=== PATIENT | male | born 1950 | race Caucasian/White ===

== ENCOUNTER 2016-07-24 04:51 | Day surgery (SDC) | payer OTHER ==
[2016-07-21 13:38] LABS: BASOPHILS 0.4 %; BASOPHILS ABSOLUTE 0.03 10/3/uL (0.0-0.16); EOSINOPHILS 5.3 %; EOSINOPHILS ABSOLUTE 0.38 10/3/uL (0.0-0.53); HEMATOCRIT 43.8 % (40.0-51.0); HEMOGLOBIN 15.1 g/dL (13.6-17.8); IMMATURE GRANULOCYTES 0.1 %; IMMATURE GRANULOCYTES ABSOLUTE 0.01 10/3/uL (0.0-0.11); LYMPHOCYTES 40.5 %; LYMPHOCYTES ABSOLUTE 2.92 10/3/uL (0.67-4.30); MANUAL DIFF NO %; MEAN CORPUS HGB CONC 34.5 g/dL (32.0-36.0); MEAN CORPUSCULAR VOLUME 86.9 fL (80-100); MEAN PLATELET VOLUME 9.7 fL (9.2-13.0); MONOCYTES 11.7 %; MONOCYTES ABSOLUTE 0.84 10/3/uL (0.21-1.20); NEUTROPHILS ABSOLUTE 3.03 10/3/uL (2.02-8.40); PLATELET COUNT 236 10/3/uL (150-400); RBC DISTRIBUTION WIDTH 13.4 % (12.0-16.0); RED CELL COUNT 5.04 10/6/uL (4.7-6.1); WHITE BLOOD CELLS 7.2 10/3/uL (4.5-10.5)
[2016-07-21 13:44] LABS: PROTIME (NOT ORD) 13.4 SEC (12.0-14.5)
[2016-07-21 13:52] LABS: BUN (BLOOD UREA NITROGEN) 7 MG/DL (6-23); CHLORIDE, SERUM 107 MMOL/L (96-112); CO2 (CARBON DIOXIDE) 26 MMOL/L (24-34); GFR AFRICAN AMERICAN 74 ML/MIN (>=60); GFR NON AFRICAN AMERICAN 64 ML/MIN (>=60); GLUCOSE, SERUM 96 MG/DL (60-99); POTASSIUM, SERUM 4.1 MMOL/L (3.5-5.3); SODIUM, SERUM 142 MMOL/L (135-148)
--- NOTE | ~2016-07-24 | OP ---
Record Of Operation [facility] [address] [place]. [address] NAME: MATTIE JOYA : 54 STATUS : [facility]#: [id number] AGE: 65 ADM/REG DATE : 07/24/16 MR#: [id number] REPORT SERV DATE: 07/24/16 DICTATED BY: GUEVARA SCOTT DATE: 07/24/16 REPORT STATUS : Draft TRANSCRIBED BY: MODTony DATE: 07/24/16 DATE OF PROCEDURE: 07/24/2016 PREOPERATIVE DIAGNOSIS: 4.2 cm dominant nodule of the right thyroid lobe. POSTOPERATIVE DIAGNOSIS: Follicular lesion of the right thyroid lobe. PROCEDURE PERFORMED: Right thyroid lobectomy and NIM (neural integrity monitoring). INDICATIONS AND SIGNIFICANT HISTORY: The patient is a 65-year-old male with a significant history of an identified thyroid nodule located in the right pole of the thyroid gland. The patient underwent needle biopsy and given the size of the lesion of 4.3 cm, he was felt to benefit from surgical therapy. OPERATIVE PROCEDURE AND FINDINGS: After informed consent was obtained, the patient was brought to the operating room and placed on the operating room table in supine position, at which point general endotracheal anesthesia was provided by the anesthesia service using a GlideScope intubation technique. The GlideScope was positioned at approximately 22 cm at the lips and neural integrity monitoring set up to monitor right laryngeal muscles throughout the course of the case. At this point, the neck was prepped and draped in standard sterile fashion. A 15 blade scalpel was used to make a horizontal skin incision through a natural skin crease and subplatysmal flaps were elevated superiorly and inferiorly. Strap muscles were divided in the midline and retracted laterally and used to expose the thyroid isthmus. Right thyroid lobe was then isolated and from its vascular tree using Harmonic scalpel, to both isolate the inferior pole and superior pole vessels and divide the middle thyroid vein. Next, the thyroid isthmus was divided adjacent to the left thyroid lobe and a combination of sharp and blunt dissection was used to cautiously dissect through La's ligament until the right thyroid lobe was removed from its position in the right neck. Great care was taken to preserve the recurrent laryngeal nerve which was visible during the dissection and any tissue that appeared to be parathyroid in origin. Once the lesion was removed from the neck, it was sent to Pathology where pathology evaluated and found follicular lesion. It was approximately 4.2 to 4.6 cm in size. The wound was then closed in multiple layers consisting of deep Vicryl suture followed by closure of the skin with Prolene. Steri-Strips were applied. The patient was then turned back toward Anesthesia, aroused from anesthesia, and taken to the postanesthesia care unit in satisfactory condition. COMPLICATIONS: None. ESTIMATED BLOOD LOSS: Less than 25 mL. IV FLUIDS: Per Anesthesia. DLA/MODL Record Of Operation [address] [address] NAME: MATTIE JOYA : 54 STATUS : [facility] PAT#: [id number] AGE: 65 ADM/REG DATE : 07/24/16 MR#: [id number] REPORT SERV DATE: 07/24/16 DICTATED BY: GUEVARA SCOTT DATE: 07/24/16 REPORT STATUS : Draft TRANSCRIBED BY: OCTAVIANO DATE: 07/24/16 Guevara Scott M.D. / [id number] CC: Woodrow Ortega M.D.
[~2016-07-24 04:51] MED LIST: ALBUTEROL0.083 % INH; ARICEPT10 PO; GLUCOPHAGE1000 MG PO; LIPITOR10 PO; PRIN20 PO; PULRESP.5 INH
== END 2016-07-24 13:02 | disposition home or self-care (01) ==
LOC: SDC 04:51
PROVIDERS: Otolaryngology
PROC: 0GTH0ZZ Resection of Right Thyroid Gland Lobe, Open Approach (ICD-10-PCS; principal; 2016-07-24 06:45)
DX: E04.9 Nontoxic goiter, unspecified (principal); I10 Essential (primary) hypertension; J44.9 Chronic obstructive pulmonary disease, unspecified; J45.909 Unspecified asthma, uncomplicated; G47.33 Obstructive sleep apnea (adult) (pediatric); E11.9 Type 2 diabetes mellitus without complications; E78.5 Hyperlipidemia, unspecified; F03.90 Unspecified dementia, unspecified severity, without behavioral disturbance, psychotic disturbance, mood disturbance, and anxiety; Z79.82 Long term (current) use of aspirin; Z79.899 Other long term (current) drug therapy; Z88.5 Allergy status to narcotic agent
CPT/HCPCS: 80048; 82962; 83970; 85025; 85610; 85730; 88307; 88311; 88331; 93005; J0690; J1170; J2250; J2405; J2710; J3010